=== PATIENT | female | born 1975 | race Two or more races ===

== ENCOUNTER → 2022-09-27 12:51 | Outpatient (BNVA) | payer OTHER, SELFPAY | PROVIDERS: PCP Internal Medicine; Visit Provider Internal Medicine Rheumatology | DX: Z13.89 Encounter for screening for other disorder (principal) ==

== ENCOUNTER → 2022-12-29 09:17 | Outpatient (BNVA) | payer OTHER, SELFPAY | PROVIDERS: PCP Internal Medicine; Visit Provider Internal Medicine Rheumatology | DX: M22.40 Chondromalacia patellae, unspecified knee (principal) | CPT/HCPCS: 20610 ==